=== PATIENT | female | born 1990 | race Caucasian/White ===

== ENCOUNTER → 2016-12-13 14:00 | Observation (INO) ==
[2016-12-13 13:00] LABS: Bilirubin,Urine Negative (Negative); Blood,Urine Negative (Negative); Clarity,Urine Cloudy (Clear); Color,Urine Yellow (Yellow); Glucose,Urine (UA) Normal (Normal); Ketones,Urine Trace mg/dL (Negative); Leukocyte Esterase,Urine Trace (Negative); Nitrite,Urine Negative (Negative); Protein,Urine 30 mg/dL (Neg-Trace); Specific Gravity,Urine 1.025 (1.010-1.025); Urobilinogen,Urine Normal (Normal)
[2016-12-13 13:01] LABS: Bacteria,Urine Moderate per hpf (None-Few); Hyaline Casts,Urine None Seen per lpf (None-Few); RBC,Urine 0-3 per hpf (0-3); Squamous Epithelial Cell,Urine Many per lpf (None-Few)
--- NOTE | 2016-12-13 13:16 | Discharge Summary ---
Date of Encounter: 12/13/16 Time of Encounter: 13:17 - Discharge Diagnosis (1) 29 weeks gestation of Priority: Primary Status: Acute Comments: Patient admitted for observation (2) Pain of round ligament affecting , antepartum Priority: Secondary Status: Acute Comments: Patient had a fall last week and was seen KB was negative and patient received Rhogam due to RH negative status in . Discussed Interventions for pain management. (3) Vaginal discharge during Priority: Secondary Status: Acute Comments: Speculum exam. NO blood noted in vagina. Large amount of thick white discharge. Vaginosis panel collected and sent to lab. Qualifiers: Trimester: third trimester Qualified Code(s): O26.893 - Other specified related conditions, third trimester; N89.8 - Other specified noninflammatory disorders of vagina - Discharge Medications Home Medications: Promethazine HCl [Promethegan] 12.5 mg RC TID PRN #10 supp.rect 09/24/16 [Rx] Buspirone HCl [Buspar] 5 mg PO DAILY 12/13/16 [History] Allergies/Adverse Reactions: Allergies Penicillins Allergy (Verified 08/11/16 13:59) Difficulty Breathing Data Procedures and tests throughout hospitalization: Laboratory Tests 12/13/16 12:40 Urine Color Yellow Urine Clarity Cloudy A Urine pH 8.0 Ur Specific [place] 1.025 Urine Protein 30 H Urine Glucose (UA) Normal Urine Ketones Trace H Urine Blood Negative Urine Nitrite Negative Urine Bilirubin Negative Urine Urobilinogen Normal Ur Leukocyte Esterase Trace H Urine Microscopic RBC 0-3 Urine Microscopic WBC 5-15 H Ur Squamous Epith Cells Many H Urine Bacteria Moderate H Hyaline Casts None Seen Ur Culture Indicated? YES A Labs on day of discharge: Labs from last 24 hours 12/13/16 12:40 Urine Color Yellow Urine Clarity Cloudy A Urine pH 8.0 Ur Specific [place] 1.025 Urine Protein 30 H Urine Glucose (UA) Normal Urine Ketones Trace H Urine Blood Negative Urine Nitrite Negative Urine Bilirubin Negative Urine Urobilinogen Normal Ur Leukocyte Esterase Trace H Urine Microscopic RBC 0-3 Urine Microscopic WBC 5-15 H Ur Squamous Epith Cells Many H Urine Bacteria Moderate H Hyaline Casts None Seen Ur Culture Indicated? 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 Patient denies any dysuria or urinary frequency. Patient reports spotting yesterday. Denies any intercourse. Patient denies LOF. Patient reports +FM. Time Attestation: Total time spent providing and/or coordinating discharge services: Time Spent: Less than 30 minutes Exam - Constitutional General appearance IM: A&O X 3, pleasant, answers questions appropriately - Respiratory Respiratory exam: Present: CTAB - Cardiovascular Cardiovascular exam IM: Present: RRR, +S1, +S2 - GI/Abdominal GI/Abdominal exam IM: normal bowel sounds - Extremities Exam Extremities exam IM: Present: full ROM, normal capillary refill, normal inspection - Neurological Exam Neurological exam: alert, oriented X3, reflexes normal - Other Additional findings: Patient tender over right side round ligament. Patient denies any CVA tenderness. No tenderness noted over the bladder. FHR 135 bpm moderate variability +15x15 accels no decels noted. RNST. Contraction x1 noted. - VTE Reasons for not Prescribing Prophylaxis: Treatment not Indicated - Low risk for VTE
[2016-12-13 14:28] LABS: Gardnerella DNA ***DETECTED*** (Not Detect); Trichomonas DNA Not Detected (Not Detect)
[2016-12-13 14:29] LABS: Candida DNA Not Detected (Not Detect)
== END | disposition home or self-care (01) ==
LOC: 1NENULAB
PROVIDERS: ADMIT Obstetrics & Gynecology; ATTEND Obstetrics & Gynecology

== ENCOUNTER 2017-02-17 09:59 | Inpatient (IN) ==
[2017-02-17] MEDS ORDERED: Clindamycin 900 MG/50 ML 900 MG/50 ML IV.SOLN IVPB ONE (10:06)
[2017-02-17] MEDS ORDERED: Oxytocin 20 units/ LR 1000 mL 20 UNIT/1,000 ML BAG IVC ONE (10:06)
[2017-02-17] MEDS ORDERED: Metoclopramide 10 MG/2 ML VIAL IVP ONE (10:06)
[2017-02-17] MEDS ORDERED: Ringers Solution, Lactated 1,000 ML IVC ONE (10:06)
[2017-02-17] MEDS ORDERED: Famotidine 20 MG/2 ML VIAL IVP ONE (10:06)
[2017-02-17] MEDS ORDERED: Ringers Solution, Lactated 1,000 ML IVC SCH (10:15)
[2017-02-17] MEDS ORDERED: Oxytocin 20 units/ LR 1000 mL 20 UNIT/1,000 ML BAG IVC SCH ×2 (10:15→16:03)
[2017-02-17 10:29] LABS: Basophils # 0.1 K/mcL (0.0-0.2); Basophils % 0.5 %; Eosinophils # 0.1 K/mcL (0.0-0.6); Eosinophils % 0.4 %; Hematocrit 37.7 % (35.3-44.9); Immature Granulocytes % 4.5 % (0-4); Lymphocytes # 2.7 K/mcL (0.6-4.6); Lymphocytes % 14.2 %; Mean Corpuscular HGB Conc 34.5 g/dL (31.6-35.5); Mean Corpuscular Hemoglobin 30.8 pg (28.0-33.3); Mean Corpuscular Volume 89.3 fL (83.0-100.0); Mean Platelet Volume 10.2 fL (9.4-12.4); Monocytes # 1.4 K/mcL (0.0-1.3); Monocytes % 7.6 %; Neutrophils # 13.8 K/mcL (1.6-8.9); Nucleated Red Blood Cells 0.1 /100 WBC (0); Platelet Count 191 K/mcL (140-400); Red Blood Count 4.22 M/mcL (3.82-4.97); Red Cell Distribution Width 13.2 % (11.5-14.5); Segmented Neutrophils % 72.8 %
--- NOTE | 2017-02-17 11:06 | OB/GYN History & Physical ---
Date of Encounter: 02/17/17 Time of Encounter: 11:06 Assessment and Plan (1) 39 weeks gestation of Current visit: Yes Status: Acute (2) with history of section, antepartum Current visit: Yes Status: Acute Ms. Gamboa is a 26 year old female at 39 + 1 who presents to L&D for a scheduled repeat . Labs: Blood type AB-, GBS +, Rubella Immune, HCV ab positive, PCR negative, All other serologies normal. Plan is for a section to be completed today. Patient arrived two hours prior to scheduled surgery and is being hydrated with IV fluids and she and baby are being monitored. (3) History of intravenous drug use in remission Current visit: No Status: Resolved (4) HSV (herpes simplex virus) anogenital infection Current visit: No Status: Chronic History of Present Illness Chief complaint: Repeat HPI: Ms. Gamboa is a 26 year old female at 39 + 1 who presents to L&D for a scheduled repeat . She denies complications with this . She was last seen in the office on 02/09/17. Patient reports good movements. She denies Contractions, vaginal bleeding , loss of fluid, Chest pain, SOB, Vomiting, diarrhea, urinary symptoms, abdominal pain, blurry vision, headache. Labs: Blood type AB-, GBS +, Rubella Immune, HCV ab positive, PCR negative, All other serologies normal. Past Med Surg Social Fam HX - Past Medical History Medical history: no medical history Psychiatric history: anxiety - Past Surgical History Surgical History: , other - Social History Smoking Status: Current every day smoker Packs per day: 0.5 Smokeless Tobacco Status: No Alcohol use: none Drug use: opiates - Family History Mother Family Member Ethnicity: Non- Living Status: Still Living Hx Family Cardiac Disorders: No Hx Family Respiratory Disorders: No Hx Family Cancer: Yes (thyroid) Hx Family GI Disorders: Yes (crohns disease) Hx Family Endocrine Disorder: No Hx Family Neuromuscular Disorders: No Hx Family Neurologic Disorders: No Hx Family HEENT Disorders: No Hx Family Autoimmune Disorders: No Obstetrical History - Pregnancies : 3 Para: 1 Term: 1 : 0 Ab's: 1 Livin Medications and Allergies Allergies Penicillins Allergy (Verified 08/11/16 13:59) Difficulty Breathing Review of System OB All systems PM: reviewed and no additional remarkable complaints except as stated Exam - Constitutional Constitutional: well developed, well nourished, no acute distress - HEENT HEENT: EOMI, Mucus Membranes Moist - Neck Neck exam: normal inspection - Lungs Respiratory exam: CTAB - Cardiovascular Cardiovascular exam: RRR - Abdomen Abdomen: Present: bowel sounds normal, gravid, non tender (soft) - Extremities Extremities exam: normal inspection Deep Tendon Reflex Grade: 1+ Diminished Results Result Diagrams: 02/17/17 10:20 Abnormal lab results WBC 18.9 K/mcL (4.3-11.1) H 02/17/17 10:20 Immature Gran % 4.5 % (0-4) H 02/17/17 10:20 Neutrophils # 13.8 K/mcL (1.6-8.9) H 02/17/17 10:20 Monocytes # 1.4 K/mcL (0.0-1.3) H 02/17/17 10:20 Nucleated RBCs/100 WBC 0.1 /100 WBC (0) H 02/17/17 10:20 All other labs normal.
--- NOTE | 2017-02-17 11:12 | Anesthesia Evaluation PreOp ---
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) Medications and Allergies Allergies Penicillins Allergy (Verified 08/11/16 13:59) Difficulty Breathing - Meds/Allergy Pre-op Review Medications Reviewed: Yes Allergies Reviewed: Yes Beta Blockers on Current Med List: No Anesthesia Results - Labs 02/17/17 10:20 Anesthesia Exam O2 Sat Height 1.65 m Weight 84.822 kg bp 125/89 Height: 65 Weight: 84 NPO (# of Hours): greater than 8 hours - HEENT Pupil (Motor): Pupils equal Mallampati: II Teeth: Normal Oral Opening: Greater than 3 - COUNTER TOP MAKER LOC: Oriented COUNTER TOP MAKER Motor: Normal RUE, Normal LUE, Normal RLE, Normal LLE, Normal Face COUNTER TOP MAKER Sensory: Normal: RUE, LUE, RLE, LLE, Face - Cardiac Rhythm: Regular Murmur: None JVD: No Carotid Bruit: No - Pulmonary Breath Sounds: bilateral Clear Respiratory Effort: Symmetrical Anesthesia Assess/Plan ASA Score: 2 Modified Sydnee Scale for Level of Consciousness: Cooperative, oriented, and tranquil Anesthetic Plan: Regional Autologous Blood: No Monitoring Plan: Standard Monitors Recovery Plan: PACU
[2017-02-17] MEDS ORDERED: Gentamicin 340 MG in 0.9 % Sodium Chloride 100 ML IVPB ONE (11:30)
[2017-02-17] MEDS ORDERED: *HR* Morphine Sulfate/PF 5 MG/10 ML AMPUL ONE (11:42)
[2017-02-17] MEDS ORDERED: *HR* FentaNYL (PF) 100 MCG/2 ML VIAL ONE (11:42)
[2017-02-17] MEDS ORDERED: Ondansetron 4 MG/2 ML VIAL IVP ONE (12:26)
[2017-02-17] MEDS ORDERED: *HR* HYDROmorphone (PF) 1 MG/ML SYRINGE IVP PRN (12:26)
[2017-02-17] MEDS ORDERED: Ringers Solution, Lactated 1,000 ML ONE (12:32)
[2017-02-17] MEDS ORDERED: *HR* Phenylephrine 10 MG/ML VIAL ONE (12:32)
[2017-02-17] MEDS ORDERED: *HR* Oxytocin 10 UNIT/ML VIAL IM ONE (12:32)
--- NOTE | 2017-02-17 14:32 | OB/GYN Procedure Note ---
Section - Date of procedure: 02/17/17 Preop diagnosis: desires repeat Post-op diagnosis: same Procedure: repeat low transverse Surgeon: Malia Neumann Estimated blood loss (cc): 400 Anesthesiologist: Elena Cast Strategic Advisor: Jerry Kapoor Anesthesia Type: Spinal section complications: none Disposition: L&D Recovery Room Specimens: Placenta (hold) - Infant (s) Infant A Infant Delivery Date: 02/17/17 Delivery Time: 12:33 Presentation: vertex Position: unknown Gender: Male Viability: Viable Pounds: 7 Ounces: 10 Gram Weight: 3.47 kg at 1 minute: 9 at 5 minutes: 9 Specimens collected: cord blood Placenta: spontaneous Cord: 3 umbilical vessels - Narrative Narrative: Patient was taken to the operative suite and placed under spinal anesthetic. She was then prepped and draped in normal sterile fashion in the dorsal supine position. Timeout was then performed. Antibiotics were given at room time. SCDs are on and active. Pfannenstiel skin incision is then made and carried through to underlying layer of fascia with the Bovie. The fascia was then incised in the midline and incision extended laterally with the Ocasio scissors. The fascia was tented up and dissected off the rectus muscles sharply. The rectus muscles were in the midline and the peritoneum was tented up and entered sharply with the Metzenbaum scissors. The peritoneal incision was then extended bluntly. The bladder blade was then inserted and the vesicouterine peritoneum was entered sharply. Bladder flap was created digitally. A low transverse uterine incision was then made. The infant vertex was brought to the incision and the infant was delivered using fundal pressure. There was no nuchal cord. Cord was clamped and cut. Infant was handed to waiting nursery staff. Placenta delivered spontaneously complete and intact with a three-vessel cord. The uterus was cleared of all clots and debris using moist laparotomy sponge. The uterine incision was then closed using 0 Vicryl in a running locked fashion. A second layer of the same suture was used to obtain excellent hemostasis. The abdomen was then cleared of all clots and debris using copious irrigation. The fascial incision was then closed using 0 Vicryl in a running fashion. The skin was closed using 4-0 Vicryl in a subcuticular fashion. Steri- Strips and sterile dressing are then placed. Mother and taken to recovery in stable condition.
[2017-02-17] MEDS ORDERED: Acetaminophen 325 MG TABLET PO PRN (16:03)
[2017-02-17] MEDS ORDERED: Ondansetron 4 MG/2 ML VIAL IVP PRN (16:03)
[2017-02-17] MEDS ORDERED: Rho Immune Globulin 1,500 UNIT SYRINGE IM ONE (16:03)
[2017-02-17] MEDS ORDERED: Simethicone 80 MG TAB.CHEW PO PRN (16:03)
[2017-02-17] MEDS ORDERED: Metoclopramide 10 MG/2 ML VIAL IVP PRN (16:03)
[2017-02-17] MEDS ORDERED: Sennosides 8.6 MG TABLET PO PRN (16:03)
--- NOTE | 2017-02-17 18:03 | Anesthesia Evaluation Post Op ---
Date of Encounter: 02/17/17 Time of Encounter: 18:02 - Vital Signs Vital Signs: Vital Signs/O2 Sat, Most Current Temp Pulse Resp BP 98.2 F 70 16 121/76 02/17/17 16:44 02/17/17 16:44 02/17/17 17:05 02/17/17 16:44 - Lungs Lungs: Clear Ascult./Percussion - Airway Airway: Non-obstructed - Cardiovascular Regular Rate - Mental Status Mental Status: Alert & Oriented, Answers Appropriately - Pain Pain Scale: 2 - Nausea Vomiting Nausea Vomiting: Not Present - Hydration Hydration: Tolerates oral liquids, Mazariegos catheter - Discharge PostOp Status: Transfer Patient to floor
[2017-02-17] MEDS: *HR* OxyCODONE/APAP 5/325 TABLET PO PRN ×2 (18:06→22:26)
[2017-02-17] MEDS: Ibuprofen 600 MG TABLET PO PRN (21:27)
[2017-02-18] MEDS: *HR* OxyCODONE/APAP 5/325 TABLET PO PRN ×3 (06:08→19:57)
[2017-02-18] MEDS: Prenatal Vit/FA 1 EACH TABLET PO SCH (07:56)
[2017-02-18] MEDS: Ibuprofen 600 MG TABLET PO PRN ×2 (09:26→19:57)
--- NOTE | 2017-02-18 09:45 | OB/GYN Progress Note ---
Date of Encounter: 02/18/17 Time of Encounter: 09:43 - Assessment and Plan (1) delivery delivered Current Visit: Yes Status: Acute Pt states feels well. No complaints, Pain well managed on PO pain medication. Stable POD#1. Continue current management plan. Subjective - Subjective Patient reports: appetite normal, voiding normally, pain well controlled, ambulating normally [place]: doing well Objective - Vital Signs Latest vital signs: Vital Signs Temp Pulse Resp BP Pulse Ox 02/18/17 07:30 97.6 F 78 16 104/70 02/18/17 05:00 97.6 F 67 14 107/62 97 02/18/17 00:35 97.6 F 66 14 94/48 98 02/17/17 19:54 97.7 F 72 14 122/83 96 02/17/17 19:06 97.8 F 80 16 115/73 02/17/17 18:15 16 02/17/17 17:15 98.0 F 64 16 128/74 02/17/17 17:05 16 02/17/17 16:44 98.2 F 70 16 121/76 02/17/17 16:25 97.4 F L 70 16 119/71 02/17/17 15:55 16 Intake and Output 02/17/17 02/18/17 02/18/17 23:59 07:59 15:59 Intake Total 120 / 120 Output Total 1949 2700 / 2700 Balance -1949 / -1950 -2700 / -2700 120 / 120 Intake: Oral 120 / 120 Output: Urine 200 / 200 Catheter 1949 2500 / 2500 Other: Meal Breakfast Percent of Meal Consumed 50% Weight 85.7 kg 81 kg Patient Weight 02/18/17 23:59 Weight 81 kg - Exam Lungs: bilateral: normal Chest: Normal S1, Normal S2 Extremities: Present: normal Abdomen: Present: normal appearance, soft Incision: Present: dry, intact, dressed Uterus: Present: normal, firm - Labs Labs: Laboratory Results - last 24 hr 02/17/17 02/17/17 10:20 13:38 WBC 18.9 H RBC 4.22 Hgb 13.0 Hct 37.7 MCV 89.3 MCH 30.8 MCHC 34.5 RDW 13.2 Plt Count 191 MPV 10.2 Immature Gran % 4.5 H Seg Neutrophils % 72.8 Lymphocytes % 14.2 Monocytes % 7.6 Eosinophils % 0.4 Basophils % 0.5 Neutrophils # 13.8 H Lymphocytes # 2.7 Monocytes # 1.4 H Eosinophils # 0.1 Basophils # 0.1 Nucleated RBCs/100 WBC 0.1 H Baby's Blood Type B RH POSITIVE Mother's Blood Type AB RH NEGATIVE Rhogam Indicated YES
[2017-02-18] MEDS ORDERED: Rho Immune Globulin 1,500 UNIT SYRINGE IM ONE (12:30)
[2017-02-19] MEDS: *HR* OxyCODONE/APAP 5/325 TABLET PO PRN ×2 (00:34→08:07)
[2017-02-19] MEDS: Ibuprofen 600 MG TABLET PO PRN (03:44)
[2017-02-19 07:44] VITALS: BP 125/56
[2017-02-19] MEDS: Prenatal Vit/FA 1 EACH TABLET PO SCH (08:08)
--- NOTE | 2017-02-19 08:44 | Discharge Summary ---
Date of Encounter: 02/19/17 Time of Encounter: 08:40 - Discharge Diagnosis (1) delivery delivered Priority: Primary Status: Acute Comments: The patient is doing well . She is tolerating a regular diet, oral pain medication for pain control and has return of bowel function. - Discharge Medications Prescriptions: OxyCODONE/APAP 5/325 [Percocet 5/325 MG] 1 each PO Q4HR PRN #40 tab PRN Reason: Moderate pain 4-6 Ibuprofen [Motrin] 600 mg PO Q6HR PRN #30 tab PRN Reason: Mild To Moderate Pain Home Medications: Ibuprofen [Motrin] 600 mg PO Q6HR PRN #30 tab 02/19/17 [Rx] OxyCODONE/APAP 5/325 [Percocet 5/325 MG] 1 each PO Q4HR PRN #40 tab 02/19/17 [Rx ] Vit/FA 1 each PO DAILY tab 02/19/17 [Rx] Allergies/Adverse Reactions: Allergies Penicillins Allergy (Verified 08/11/16 13:59) Difficulty Breathing Data Procedures and tests throughout hospitalization: Laboratory Tests 02/17/17 02/17/17 10:20 13:38 WBC 18.9 H RBC 4.22 Hgb 13.0 Hct 37.7 MCV 89.3 MCH 30.8 MCHC 34.5 RDW 13.2 Plt Count 191 MPV 10.2 Immature Gran % 4.5 H Seg Neutrophils % 72.8 Lymphocytes % 14.2 Monocytes % 7.6 Eosinophils % 0.4 Basophils % 0.5 Neutrophils # 13.8 H Lymphocytes # 2.7 Monocytes # 1.4 H Eosinophils # 0.1 Basophils # 0.1 Nucleated RBCs/100 WBC 0.1 H Screen NEGATIVE Baby's Blood Type B RH POSITIVE Mother's Blood Type AB RH NEGATIVE Rhogam Indicated YES Rhogam Req for Mother 1 Labs on day of discharge: Labs from last 24 hours 02/17/17 13:38 Screen NEGATIVE Rhogam Req for Mother 1 Date of admission: 02/17/17 09:59 Primary care physician: PCP NO Consults: 02/17/17 16:03 Consult to Veneer Stapler (W&C) [CONS] Routine Reason For Exam: Reason for SW Consult: history of opiate Discharging clinician: Jolene Guzman Anticipated date of discharge: 07/22/17 - Patient Status Disposition: Home, Self-Care Condition: Good Functional capacity at discharge: independent ambulation Overall status at discharge: patient is progressing back to baseline - Discharge Instructions Follow Up With: NO,PCP [Primary Care Provider] - - Diet and Activity Activity: increase activity as tolerated, resume usual activities as tolerated Hospital Course Procedures: Rpt C/S Reason for admission: section Delivery: section Other procedures: none complications: none Discharge diagnosis: IUP at term delivered baby: male Hospital course: Uncomplicated. Patient meeting milestones. She has remained afebrile with stable vital signs throughout her postop course. She has good oral pain medication control. is doing well. She is recovering addict and her baby is currently on a 5 day hold Time Attestation: Total time spent providing and/or coordinating discharge services: Time Spent: Less than 30 minutes Specific discharge activities: Pelvic rest, no lifting, no driving - VTE Documentation of Mechanical Device: Intermittent pneumatic compression device Exam - Constitutional Vitals: Temp Pulse Resp BP Pulse Ox 97.5 F L 71 12 125/56 98 02/19/17 07:40 02/19/17 07:40 02/19/17 07:40 02/19/17 07:40 02/19/17 07:40 General appearance IM: A&O X 3, pleasant, no acute distress, answers questions appropriately - Respiratory Respiratory exam: Present: CTAB. Absent: respiratory distress - Cardiovascular Cardiovascular exam IM: Present: RRR. Absent: irregular rhythm - GI/Abdominal GI/Abdominal exam IM: normal bowel sounds, soft, no peritoneal signs Incision: normal, dry, intact - Rectal Rectal exam: deferred - Uterine Tone: Firm Uterus Position: 1 Finger Below Umbilicus, Midline - Extremities Exam Extremities exam IM: Present: normal inspection, pedal edema (minimal), warm. Absent: calf tenderness, tenderness - Neurological Exam Neurological exam: alert, no focal deficits
[2017-02-19 09:39] LABS: Basophils # 0.1 K/mcL (0.0-0.2); Basophils % 0.6 %; Eosinophils # 0.2 K/mcL (0.0-0.6); Eosinophils % 1.2 %; Hematocrit 36.7 % (35.3-44.9); Hemoglobin 12.5 g/dL (11.5-15.4); Immature Granulocytes % 3.8 % (0-4); Lymphocytes # 2.5 K/mcL (0.6-4.6); Lymphocytes % 17.3 %; Mean Corpuscular HGB Conc 34.1 g/dL (31.6-35.5); Mean Corpuscular Hemoglobin 30.9 pg (28.0-33.3); Mean Corpuscular Volume 90.6 fL (83.0-100.0); Mean Platelet Volume 10.4 fL (9.4-12.4); Monocytes # 1.2 K/mcL (0.0-1.3); Monocytes % 8.1 %; Platelet Count 231 K/mcL (140-400); Red Blood Count 4.05 M/mcL (3.82-4.97); Red Cell Distribution Width 13.1 % (11.5-14.5)
== END 2017-02-19 12:50 | disposition home or self-care (01) | DRG 540 ==
LOC: 1NENULAB 09:59 → 1NENUOBS 15:53
PROVIDERS: ADMIT Obstetrics & Gynecology; ATTEND Obstetrics & Gynecology